=== PATIENT | male | born 1955 | race Asian ===

== ENCOUNTER → 2016-12-26 | Outpatient (CLI) | payer OTHER ==
[~2016-12-26] MED LIST: ALLO300T2 PO; COLC0.6T69 PO; METO100XL PO; SIMV20TA6 PO
[2016-12-26 11:23] LABS: BASOPHILS % (AUTO) 1.3 % (0.0-2.0); EOSINOPHILS % (AUTO) 6.8 % (1.0-6.0); HEMATOCRIT 45.4 % (41-53); HEMOGLOBIN 14.8 g/dL (13.5-17.5); LYMPHOCYTES # (AUTO) 2.7 K/uL (1.0-4.8); LYMPHOCYTES % (AUTO) 33.3 % (22.0-44.0); MEAN CORPUSCULAR HEMOGLOBIN 29.2 pg (26.0-34.0); MEAN CORPUSCULAR HGB CONC 32.7 G/dL (31.0-37.0); MEAN CORPUSCULAR VOLUME 89 fL (80-100); MONOCYTES # (AUTO) 0.6 K/uL (0.1-1.0); MONOCYTES % (AUTO) 7.6 % (2.0-9.0); NEUTROPHILS # (AUTO) 4.1 K/uL (1.8-7.7); PLATELET COUNT (AUTO) 273 K/uL (150-450); RED BLOOD CELL COUNT(AUTO) 5.09 MIL/uL (4.50-5.90); RED CELL DISTRIBUTION WIDTH 14.9 % (11.5-14.5)
[2016-12-26 11:38] LABS: ALANINE AMINOTRANSFERASE 49 U/L (12-78); ALBUMIN 3.8 g/dL (3.4-5.0); ANION GAP 10 mmol/L (8-16); ASPARTATE AMINOTRANSFERASE 27 U/L (15-37); BILIRUBIN,TOTAL 0.6 mg/dL (0.1-1.0); CALCIUM, TOTAL 8.7 mg/dL (8.8-10.5); CARBON DIOXIDE 27 mmol/L (22-29); CHLORIDE 104 mmol/L (98-107); CREATININE 1.14 mg/dL (0.60-1.30); GLOMERULAR FILTR. RATE CALC > 60 mL/min (>60); SODIUM SERUM 141 mmol/L (136-145); TOTAL PROTEIN, SERUM 7.6 g/dL (6.4-8.2); UREA NITROGEN, BLOOD 15 mg/dL (7-18)
[2016-12-26 12:06] LABS: URIC ACID 4.4 mg/dL (2.6-7.2)
[2016-12-26 12:25] LABS: HEMOGLOBIN A1C 5.8 % (4.5-6.2)
== END | disposition home or self-care (01) ==
LOC: LABPV 08:34
PROVIDERS: ATTEND Internal Medicine
DX: I10 Essential (primary) hypertension (principal); E78.2 Mixed hyperlipidemia; R73.09 Other abnormal glucose; M10.9 Gout, unspecified
CPT/HCPCS: 83036; 84550

== ENCOUNTER → 2017-09-08 | Outpatient (CLI) | payer OTHER ==
[~2017-09-08] MED LIST changes: +COLC0.6T68 PO; -COLC0.6T69 PO
[2017-09-08 08:34] LABS: BASOPHILS # (AUTO) 0.11 K/uL (0.00-0.20); BASOPHILS % (AUTO) 1.3 % (0.0-2.0); EOSINOPHILS # (AUTO) 0.12 K/uL (0.00-0.70); EOSINOPHILS % (AUTO) 1.52 % (1.0-6.0); HEMATOCRIT 43.2 % (41-53); HEMOGLOBIN 14.2 g/dL (13.5-17.5); LYMPHOCYTES # (AUTO) 2.9 K/uL (1.0-4.8); LYMPHOCYTES % (AUTO) 35.6 % (22.0-44.0); MEAN CORPUSCULAR HEMOGLOBIN 30.1 pg (26.0-34.0); MEAN CORPUSCULAR HGB CONC 32.8 G/dL (31.0-37.0); MEAN CORPUSCULAR VOLUME 92 fL (80-100); MONOCYTES # (AUTO) 0.6 K/uL (0.1-1.0); MONOCYTES % (AUTO) 7.8 % (2.0-9.0); NEUTROPHILS # (AUTO) 4.3 K/uL (1.8-7.7); NEUTROPHILS % (AUTO) 53.8 % (40.0-70.0); PLATELET COUNT (AUTO) 271 K/uL (150-450); RED BLOOD CELL COUNT(AUTO) 4.71 MIL/uL (4.50-5.90); RED CELL DISTRIBUTION WIDTH 14.7 % (11.5-14.5)
[2017-09-08 08:51] LABS: ALANINE AMINOTRANSFERASE 29 U/L (12-78); ALKALINE PHOSPHATASE 62 U/L (46-116); ANION GAP 6 mmol/L (8-16); ASPARTATE AMINOTRANSFERASE 17 U/L (15-37); BILIRUBIN,TOTAL 0.8 mg/dL (0.1-1.0); CALCIUM, TOTAL 8.6 mg/dL (8.8-10.5); CARBON DIOXIDE 28 mmol/L (22-29); CHLORIDE 104 mmol/L (98-107); CHOL/HDL RATIO 2.8 (4.2-7.3); CHOLESTEROL 148 mg/dL (131-200); CREATININE 1.09 mg/dL (0.60-1.30); GLOMERULAR FILTR. RATE CALC > 60 mL/min (>60); GLUCOSE,RANDOM 101 mg/dL (70-110); HDL CHOLESTEROL 53 mg/dL (40-60); LDL CHOL (CALC.) 75 mg/dL (0-130); SODIUM SERUM 138 mmol/L (136-145); THYROID STIMULATING HORMONE 2.55 uIU/mL (0.36-3.74); TOTAL PROTEIN, SERUM 7.5 g/dL (6.4-8.2); TRIGLYCERIDES 99 mg/dL (15-150); UREA NITROGEN, BLOOD 17 mg/dL (7-18)
[2017-09-08 08:59] LABS: HEMOGLOBIN A1C 6.2 % (4.5-6.2)
== END | disposition home or self-care (01) ==
LOC: MSR 07:30
PROVIDERS: ATTEND Internal Medicine
DX: M65.331 Trigger finger, right middle finger (principal); M65.332 Trigger finger, left middle finger; M65.341 Trigger finger, right ring finger; M65.342 Trigger finger, left ring finger; I10 Essential (primary) hypertension; R73.09 Other abnormal glucose; E78.2 Mixed hyperlipidemia
CPT/HCPCS: 83036; 84443

== ENCOUNTER → 2019-01-12 | Outpatient (CLI) | payer OTHER ==
[2019-01-12 09:28] LABS: BASOPHILS % (AUTO) 1.9 % (0.0-2.0); EOSINOPHILS % (AUTO) 6.3 % (1.0-6.0); HEMATOCRIT 41.3 % (41-53); HEMOGLOBIN 13.5 g/dL (13.5-17.5); LYMPHOCYTES # (AUTO) 3.3 K/uL (1.0-4.8); LYMPHOCYTES % (AUTO) 41.5 % (22.0-44.0); MEAN CORPUSCULAR HEMOGLOBIN 30.1 pg (26.0-34.0); MEAN CORPUSCULAR HGB CONC 32.8 G/dL (31.0-37.0); MEAN CORPUSCULAR VOLUME 92 fL (80-100); MONOCYTES # (AUTO) 0.7 K/uL (0.1-1.0); MONOCYTES % (AUTO) 9.2 % (2.0-9.0); NEUTROPHILS # (AUTO) 3.3 K/uL (1.8-7.7); NEUTROPHILS % (AUTO) 41.1 % (40.0-70.0); PLATELET COUNT (AUTO) 277 K/uL (150-450); RED CELL DISTRIBUTION WIDTH 14.7 % (11.5-14.5)
[2019-01-12 09:39] LABS: HEMOGLOBIN A1C 5.5 % (4.5-6.2)
[2019-01-12 09:58] LABS: ALANINE AMINOTRANSFERASE 50 U/L (12-78); ALBUMIN 3.5 g/dL (3.4-5.0); ALKALINE PHOSPHATASE 63 U/L (46-116); ANION GAP 8 mmol/L (8-16); ASPARTATE AMINOTRANSFERASE 35 U/L (15-37); BILIRUBIN,TOTAL 0.7 mg/dL (0.1-1.0); CALCIUM, TOTAL 8.6 mg/dL (8.8-10.5); CARBON DIOXIDE 26 mmol/L (22-29); CHLORIDE 103 mmol/L (98-107); CHOL/HDL RATIO 3.2 (4.2-7.3); CHOLESTEROL 123 mg/dL (131-200); CREATININE 1.14 mg/dL (0.60-1.30); GLOMERULAR FILTR. RATE CALC > 60 mL/min (>60); GLUCOSE,RANDOM 108 mg/dL (70-110); HDL CHOLESTEROL 39 mg/dL (40-60); LDL CHOL (CALC.) 57 mg/dL (0-130); POTASSIUM 4.3 mmol/L (3.5-5.1); SODIUM SERUM 137 mmol/L (136-145); THYROID STIMULATING HORMONE 1.95 uIU/mL (0.36-3.74); TOTAL PROTEIN, SERUM 7.5 g/dL (6.4-8.2); TRIGLYCERIDES 135 mg/dL (15-150); UREA NITROGEN, BLOOD 16 mg/dL (7-18)
[2019-01-12 10:08] LABS: URIC ACID 4.4 mg/dL (2.6-7.2)
== END | disposition home or self-care (01) ==
LOC: LABPV 07:04
PROVIDERS: ATTEND Internal Medicine
DX: E78.2 Mixed hyperlipidemia (principal); I10 Essential (primary) hypertension; M10.9 Gout, unspecified
CPT/HCPCS: 83036; 84443; 84550

== ENCOUNTER 2019-04-17 08:44 | Emergency (ER) | payer OTHER ==
[~2019-04-17] VITALS: Ht 167.6 cm; Wt 73.2 kg
[2019-04-17] MEDS ORDERED: ATOR10TA84 PO (08:58)
[2019-04-17] MEDS ORDERED: ASPI81 PO (08:58)
[2019-04-17] MEDS ORDERED: LOSA25TA41 PO (08:58)
[2019-04-17 09:00] VITALS: BP 158/98
[2019-04-17] MEDS ORDERED: NITROGLYCERIN 2% (1 GM=INCH) PACKET TP ONE (09:15)
[2019-04-17] MEDS ORDERED: ASPIRIN 81 MG CHEWABLE TABLET PO ONE (09:15)
[2019-04-17 09:27] LABS: BASOPHILS % (AUTO) 0.8 % (0.0-2.0); EOSINOPHILS % (AUTO) 5.3 % (1.0-6.0); HEMATOCRIT 43.6 % (41-53); HEMOGLOBIN 14.2 g/dL (13.5-17.5); LYMPHOCYTES # (AUTO) 2.5 K/uL (1.0-4.8); MEAN CORPUSCULAR HEMOGLOBIN 29.8 pg (26.0-34.0); MEAN CORPUSCULAR HGB CONC 32.6 G/dL (31.0-37.0); MEAN CORPUSCULAR VOLUME 92 fL (80-100); MONOCYTES # (AUTO) 0.7 K/uL (0.1-1.0); MONOCYTES % (AUTO) 8.6 % (2.0-9.0); NEUTROPHILS # (AUTO) 4.6 K/uL (1.8-7.7); NEUTROPHILS % (AUTO) 55.3 % (40.0-70.0); PLATELET COUNT (AUTO) 253 K/uL (150-450); RED BLOOD CELL COUNT(AUTO) 4.76 MIL/uL (4.50-5.90); RED CELL DISTRIBUTION WIDTH 14.6 % (11.5-14.5)
[2019-04-17 09:34] LABS: ANION GAP 8 mmol/L (8-16); CALCIUM, TOTAL 9.5 mg/dL (8.8-10.5); CARBON DIOXIDE 26 mmol/L (22-29); CHLORIDE 103 mmol/L (98-107); CREATININE 1.06 mg/dL (0.60-1.30); GLOMERULAR FILTR. RATE CALC > 60 mL/min (>60); GLUCOSE,RANDOM 111 mg/dL (70-110); SODIUM SERUM 137 mmol/L (136-145); UREA NITROGEN, BLOOD 16 mg/dL (7-18)
[2019-04-17 09:40] LABS: ALANINE AMINOTRANSFERASE 39 U/L (12-78); ALBUMIN 3.9 g/dL (3.4-5.0); ALKALINE PHOSPHATASE 67 U/L (46-116); ASPARTATE AMINOTRANSFERASE 26 U/L (15-37); BILIRUBIN,TOTAL 0.3 mg/dL (0.1-1.0)
[2019-04-17 09:44] LABS: B-TYPE NATRIURETIC PEPTIDE 10 pg/mL (0-100)
== END 2019-04-17 10:00 | disposition left against medical advice (07) ==
LOC: EMS 08:46
DX: R07.2 Precordial pain (principal); I10 Essential (primary) hypertension; E78.00 Pure hypercholesterolemia, unspecified; Z88.0 Allergy status to penicillin; Z88.1 Allergy status to other antibiotic agents; Z79.82 Long term (current) use of aspirin; Z79.899 Other long term (current) drug therapy; Z87.891 Personal history of nicotine dependence
CPT/HCPCS: 93005

== ENCOUNTER → 2019-11-08 | Outpatient (CLI) | payer OTHER ==
[~2019-11-08] MED LIST changes: +ASPI81 PO; +ATOR10TA84 PO; -COLC0.6T68 PO; +LOSA25TA41 PO; -METO100XL PO; -SIMV20TA6 PO
== END | disposition home or self-care (01) ==
LOC: RADPV 11:16
PROVIDERS: ATTEND Internal Medicine
DX: I70.0 Atherosclerosis of aorta (principal); R06.2 Wheezing

== ENCOUNTER 2019-12-29 03:19 | Inpatient (IN) | payer OTHER ==
[~2019-12-29] VITALS: Ht 165.1 cm; Wt 74.0 kg
[~2019-12-29 03:19] MED LIST changes: +ASPI-728 PO; -ASPI81 PO; -LOSA25TA41 PO; +LOSA25TA71 PO
[2019-12-29] MEDS ORDERED: SODIUM CHLORIDE 0.9% 1,000 ML IV ONE (03:45)
[2019-12-29] MEDS ORDERED: MAG HYDROX/AL HYDROX/SIMETH 30 ML SUSP UDCUP PO ONE (03:45)
[2019-12-29] MEDS ORDERED: ONDANSETRON HCL 4 MG/2 ML VIAL IVP ONE (03:45)
[2019-12-29] MEDS ORDERED: MORPHINE SULFATE 2 MG/ML SYRINGE IVP ONE (03:45)
[2019-12-29] MEDS ORDERED: FAMOTIDINE 10 MG/ML 2 ML VIAL IVP ONE (03:45)
[2019-12-29 04:12] LABS: BASOPHILS % (AUTO) 0.7 % (0.0-2.0); EOSINOPHILS % (AUTO) 1.2 % (1.0-6.0); HEMATOCRIT 40.6 % (41-53); HEMOGLOBIN 13.3 g/dL (13.5-17.5); LYMPHOCYTES % (AUTO) 18.7 % (22.0-44.0); MEAN CORPUSCULAR HEMOGLOBIN 29.9 pg (26.0-34.0); MEAN CORPUSCULAR HGB CONC 32.8 G/dL (31.0-37.0); MEAN CORPUSCULAR VOLUME 91 fL (80-100); MONOCYTES # (AUTO) 1.1 K/uL (0.1-1.0); NEUTROPHILS # (AUTO) 11.7 K/uL (1.8-7.7); NEUTROPHILS % (AUTO) 72.4 % (40.0-70.0); PLATELET COUNT (AUTO) 271 K/uL (150-450); RED BLOOD CELL COUNT(AUTO) 4.45 MIL/uL (4.50-5.90); RED CELL DISTRIBUTION WIDTH 15.8 % (11.5-14.5)
[2019-12-29 04:21] LABS: ANION GAP 13 mmol/L (8-16); CALCIUM, TOTAL 8.8 mg/dL (8.8-10.5); CARBON DIOXIDE 24 mmol/L (22-29); CHLORIDE 100 mmol/L (98-107); CREATININE 0.91 mg/dL (0.60-1.30); GLOMERULAR FILTR. RATE CALC > 60 mL/min (>60); GLUCOSE,RANDOM 197 mg/dL (70-110); POTASSIUM 3.6 mmol/L (3.5-5.1); SODIUM SERUM 137 mmol/L (136-145); UREA NITROGEN, BLOOD 18 mg/dL (7-18)
[2019-12-29 04:27] LABS: ALANINE AMINOTRANSFERASE 174 U/L (12-78); ALBUMIN 3.7 g/dL (3.4-5.0); ALKALINE PHOSPHATASE 87 U/L (46-116); ASPARTATE AMINOTRANSFERASE 234 U/L (15-37); BILIRUBIN,TOTAL 1.1 mg/dL (0.1-1.0); LIPASE 241 U/L (73-393); TOTAL PROTEIN, SERUM 7.8 g/dL (6.4-8.2)
[2019-12-29 04:49] LABS: APPEARANCE,URINE CLEAR (CLEAR); BILIRUBIN,URINE NEGATIVE (NEGATIVE); GLUCOSE, URINE (UA) 100 mg/dL (NEGATIVE); KETONES,URINE NEGATIVE (NEGATIVE); LEUKOCYTE ESTERASE ,URINE NEGATIVE (NEGATIVE); NITRATE,URINE NEGATIVE (NEGATIVE); OCCULT BLOOD,URINE NEGATIVE (NEGATIVE); PROTEIN,URINE TRACE (NEGATIVE)
[2019-12-29 04:55] LABS: BACTERIA,URINE None Seen /HPF (None Seen); RBC,URINE 0-2 /HPF (0-2); SQUAMOUS EPITHELIAL CELL,UR None Seen /LPF (None Seen); WBC,URINE 0-2 /HPF (0-5)
[2019-12-29] MEDS ORDERED: IOVERSOL 350 MG/ML 100 ML VIAL ONE (04:55)
[2019-12-29] MEDS ORDERED: SODIUM CHLORIDE 0.9% 100 ML ONE (04:55)
[2019-12-29] MEDS ORDERED: LEVOFLOXACIN 750 MG/D5% WATER 150 ML IV ONE (05:00)
[2019-12-29] MEDS ORDERED: 0.9% SODIUM CHLORIDE 10 ML SYRINGE IVP PRN (05:45)
[2019-12-29] MEDS ORDERED: ONDANSETRON HCL 4 MG/2 ML VIAL IVP PRN (05:45)
[2019-12-29] MEDS ORDERED: ACETAMINOPHEN 325 MG TABLET PO PRN (05:45)
[2019-12-29 06:45] VITALS: BP 152/96
[2019-12-29 07:32] VITALS: BP 157/94
[2019-12-29] MEDS ORDERED: BUPIVACAINE 0.25%/EPI 1:200,000/PF 10 ML VIAL ONE (07:58)
[2019-12-29] MEDS ORDERED: IOHEXOL 240 MG/ML 20 ML VIAL ONE (07:59)
[2019-12-29] MEDS ORDERED: RINGERS SOLUTION,LACTATED 1,000 ML IV ONE ×2 (08:01→08:30)
[2019-12-29] MEDS ORDERED: ACETAMINOPHEN 1000 MG/ISO-OSM 100 ML IV ONE (08:37)
[2019-12-29] MEDS ORDERED: HYDROmorphone 2 MG/ML SYRINGE IVP PRN ×2 (08:45→14:00)
[2019-12-29] MEDS ORDERED: FentaNYL CITRATE-PF 100 MCG/2 ML VIAL IVP PRN (08:45)
[2019-12-29] MEDS ORDERED: GLUCAGON,HUMAN RECOMBINANT 1 MG VIAL ONE (09:34)
[2019-12-29] MEDS ORDERED: KETOROLAC TROMETHAMINE 30 MG/ML VIAL ONE (10:09)
[2019-12-29] MEDS ORDERED: KETOROLAC TROMETHAMINE 30 MG/ML VIAL IVP STA (10:10)
[2019-12-29 11:35] VITALS: BP 131/78
[2019-12-29] MEDS ORDERED: ROCURONIUM BROMIDE 10 MG/ML 5 ML VIAL IVP ONE (12:00)
[2019-12-29] MEDS ORDERED: PROPOFOL 1% 20 ML VIAL IVP ONE (12:00)
[2019-12-29] MEDS ORDERED: LIDOCAINE 1% 10 ML VIAL INJ ONE (12:00)
[2019-12-29] MEDS ORDERED: GLUCAGON,HUMAN RECOMBINANT 1 MG VIAL IVP ONE (12:00)
[2019-12-29] MEDS ORDERED: GLYCOPYRROLATE 0.2 MG/ML VIAL IM ONE (12:00)
[2019-12-29] MEDS ORDERED: FentaNYL CITRATE-PF 100 MCG/2 ML VIAL IVP ONE (12:00)
[2019-12-29] MEDS ORDERED: MIDAZOLAM HCL 2 MG/2 ML VIAL IVP ONE (12:00)
[2019-12-29] MEDS ORDERED: NEOSTIGMINE METHYLSULFATE 1 MG/ML 10 ML VIAL IVP ONE (12:00)
[2019-12-29] MEDS ORDERED: ESMOLOL HCL 10 MG/ML 10 ML VIAL IVP ONE (12:00)
[2019-12-29 15:43] VITALS: BP 141/82
[2019-12-29] MEDS ORDERED: SODIUM CHLORIDE 0.9% 500 ML IV ONE (15:52)
[2019-12-29] MEDS: ACETAMINOPHEN 1000 MG/ISO-OSM 100 ML IV SCH (16:51)
[2019-12-29 20:07] VITALS: BP 139/88
[2019-12-29 23:46] VITALS: BP 144/90
[2019-12-30] MEDS: ACETAMINOPHEN 1000 MG/ISO-OSM 100 ML IV SCH (01:00)
[2019-12-30 05:03] VITALS: BP 143/86
[2019-12-30 07:56] VITALS: BP 136/89
[2019-12-30] MEDS: OXYGEN THERAPY IH SCH ×2 (08:00→20:00)
[2019-12-30] MEDS ORDERED: OxyCODONE HCL/ACETAMINOPHEN 5-325 MG TABLET PO PRN (08:00)
[2019-12-30 09:14] LABS: BASOPHILS % (AUTO) 0.5 % (0.0-2.0); EOSINOPHILS % (AUTO) 1.5 % (1.0-6.0); HEMATOCRIT 39.9 % (41-53); LYMPHOCYTES # (AUTO) 1.1 K/uL (1.0-4.8); LYMPHOCYTES % (AUTO) 10.5 % (22.0-44.0); MEAN CORPUSCULAR HGB CONC 32.6 G/dL (31.0-37.0); MEAN CORPUSCULAR VOLUME 92 fL (80-100); MONOCYTES # (AUTO) 0.7 K/uL (0.1-1.0); MONOCYTES % (AUTO) 6.3 % (2.0-9.0); NEUTROPHILS # (AUTO) 8.4 K/uL (1.8-7.7); NEUTROPHILS % (AUTO) 81.2 % (40.0-70.0); PLATELET COUNT (AUTO) 246 K/uL (150-450); RED BLOOD CELL COUNT(AUTO) 4.34 MIL/uL (4.50-5.90); RED CELL DISTRIBUTION WIDTH 16.1 % (11.5-14.5)
[2019-12-30 09:26] LABS: ALANINE AMINOTRANSFERASE 305 U/L (12-78); ALBUMIN 3.2 g/dL (3.4-5.0); ALKALINE PHOSPHATASE 127 U/L (46-116); ANION GAP 9 mmol/L (8-16); ASPARTATE AMINOTRANSFERASE 144 U/L (15-37); BILIRUBIN,TOTAL 5.8 mg/dL (0.1-1.0); CALCIUM, TOTAL 8.4 mg/dL (8.8-10.5); CARBON DIOXIDE 26 mmol/L (22-29); CHLORIDE 101 mmol/L (98-107); CREATININE 1.01 mg/dL (0.60-1.30); GLOMERULAR FILTR. RATE CALC > 60 mL/min (>60); GLUCOSE,RANDOM 135 mg/dL (70-110); POTASSIUM 3.6 mmol/L (3.5-5.1); SODIUM SERUM 136 mmol/L (136-145); TOTAL PROTEIN, SERUM 7.3 g/dL (6.4-8.2); UREA NITROGEN, BLOOD 11 mg/dL (7-18)
[2019-12-30 11:34] VITALS: BP 125/71
[2019-12-30 11:45] VITALS: BP 151/92
[2019-12-30] MEDS: POTASSIUM CHL 20 MEQ/0.9% NS 1,000 ML IV SCH (12:19)
[2019-12-30] MEDS: MetroNIDAZOLE 500 MG/NACL 100 ML IV SCH ×2 (12:20→20:01)
[2019-12-30] MEDS: LOSARTAN POTASSIUM 25 MG TABLET PO SCH (13:56)
[2019-12-30] MEDS: LEVOFLOXACIN 500 MG/D5% WATER 100 ML IV SCH (13:56)
[2019-12-30 15:45] VITALS: BP 141/83
[2019-12-30 19:47] VITALS: BP 109/71
[2019-12-31] VITALS (7 sets, daily range): BP systolic 125–151; BP diastolic 76–100
[2019-12-31] MEDS: POTASSIUM CHL 20 MEQ/0.9% NS 1,000 ML IV SCH ×2 (01:39→14:16)
[2019-12-31] MEDS: MetroNIDAZOLE 500 MG/NACL 100 ML IV SCH ×3 (04:01→20:26)
[2019-12-31 07:15] LABS: ALANINE AMINOTRANSFERASE 203 U/L (12-78); ALBUMIN 2.8 g/dL (3.4-5.0); ALKALINE PHOSPHATASE 123 U/L (46-116); ANION GAP 9 mmol/L (8-16); ASPARTATE AMINOTRANSFERASE 64 U/L (15-37); CALCIUM, TOTAL 8.3 mg/dL (8.8-10.5); CARBON DIOXIDE 24 mmol/L (22-29); CHLORIDE 105 mmol/L (98-107); GLOMERULAR FILTR. RATE CALC > 60 mL/min (>60); GLUCOSE,RANDOM 108 mg/dL (70-110); POTASSIUM 3.8 mmol/L (3.5-5.1); SODIUM SERUM 138 mmol/L (136-145); TOTAL PROTEIN, SERUM 6.7 g/dL (6.4-8.2); UREA NITROGEN, BLOOD 8 mg/dL (7-18)
[2019-12-31] MEDS: OXYGEN THERAPY IH SCH ×2 (08:00→20:00)
[2019-12-31] MEDS ORDERED: SODIUM CHLORIDE 0.9% 100 ML ONE (09:32)
[2019-12-31] MEDS ORDERED: IOVERSOL 350 MG/ML 100 ML VIAL ONE (09:32)
[2019-12-31] MEDS ORDERED: IOTHALAMATE MEGLUMINE 600 MG/ML 50 ML VIAL IVP ONE (10:33)
[2019-12-31] MEDS ORDERED: SODIUM CHLORIDE 0.9% 1,000 ML IV ONE (11:00)
[2019-12-31] MEDS ORDERED: GLUCAGON,HUMAN RECOMBINANT 1 MG VIAL IVP ONE (12:00)
[2019-12-31] MEDS ORDERED: FentaNYL CITRATE-PF 100 MCG/2 ML VIAL IVP ONE (12:00)
[2019-12-31] MEDS ORDERED: MIDAZOLAM HCL 2 MG/2 ML VIAL IVP ONE (12:00)
[2019-12-31] MEDS ORDERED: PROPOFOL 1% 20 ML VIAL IVP ONE (12:00)
[2019-12-31] MEDS ORDERED: SUCCINYLCHOLINE CHLORIDE 20 MG/ML 10 ML VIAL IVP ONE (12:00)
[2019-12-31] MEDS ORDERED: ONDANSETRON HCL 4 MG/2 ML VIAL IVP ONE (12:00)
[2019-12-31] MEDS ORDERED: LIDOCAINE 1% 10 ML VIAL INJ ONE (12:00)
[2019-12-31] MEDS ORDERED: 0.9% SODIUM CHLORIDE 10 ML SYRINGE IVP PRN (12:45)
[2019-12-31] MEDS ORDERED: FentaNYL CITRATE-PF 100 MCG/2 ML VIAL IVP PRN (12:45)
[2019-12-31] MEDS ORDERED: ONDANSETRON HCL 4 MG/2 ML VIAL IVP PRN (12:45)
[2019-12-31] MEDS ORDERED: ACETAMINOPHEN 325 MG TABLET PO PRN (12:45)
[2019-12-31] MEDS ORDERED: HYDROmorphone 2 MG/ML SYRINGE IVP PRN (12:45)
[2019-12-31] MEDS ORDERED: RINGERS SOLUTION,LACTATED 1,000 ML IV ONE (12:45)
[2019-12-31] MEDS: LOSARTAN POTASSIUM 25 MG TABLET PO SCH (14:16)
[2019-12-31] MEDS: LEVOFLOXACIN 500 MG/D5% WATER 100 ML IV SCH (15:44)
[2020-01-01 03:55] VITALS: BP 134/81
[2020-01-01] MEDS: MetroNIDAZOLE 500 MG/NACL 100 ML IV SCH ×3 (03:55→19:59)
[2020-01-01] MEDS: POTASSIUM CHL 20 MEQ/0.9% NS 1,000 ML IV SCH (03:55)
[2020-01-01 06:45] LABS: BASOPHILS % (AUTO) 0.1 % (0.0-2.0); EOSINOPHILS % (AUTO) 0 % (1.0-6.0); HEMATOCRIT 39.1 % (41-53); HEMOGLOBIN 12.9 g/dL (13.5-17.5); LYMPHOCYTES # (AUTO) 1.3 K/uL (1.0-4.8); LYMPHOCYTES % (AUTO) 11.7 % (22.0-44.0); MEAN CORPUSCULAR HGB CONC 32.8 G/dL (31.0-37.0); MEAN CORPUSCULAR VOLUME 91 fL (80-100); MONOCYTES % (AUTO) 9.4 % (2.0-9.0); NEUTROPHILS # (AUTO) 8.7 K/uL (1.8-7.7); NEUTROPHILS % (AUTO) 78.8 % (40.0-70.0); PLATELET COUNT (AUTO) 284 K/uL (150-450); RED BLOOD CELL COUNT(AUTO) 4.29 MIL/uL (4.50-5.90)
[2020-01-01 06:55] LABS: ALANINE AMINOTRANSFERASE 147 U/L (12-78); ALBUMIN 2.9 g/dL (3.4-5.0); ALKALINE PHOSPHATASE 128 U/L (46-116); ANION GAP 7 mmol/L (8-16); ASPARTATE AMINOTRANSFERASE 32 U/L (15-37); BILIRUBIN,TOTAL 1.1 mg/dL (0.1-1.0); CALCIUM, TOTAL 8.3 mg/dL (8.8-10.5); CARBON DIOXIDE 24 mmol/L (22-29); CHLORIDE 105 mmol/L (98-107); CREATININE 0.93 mg/dL (0.60-1.30); GLOMERULAR FILTR. RATE CALC > 60 mL/min (>60); GLUCOSE,RANDOM 130 mg/dL (70-110); SODIUM SERUM 136 mmol/L (136-145); UREA NITROGEN, BLOOD 11 mg/dL (7-18)
[2020-01-01 07:33] VITALS: BP 154/86
[2020-01-01] MEDS: OXYGEN THERAPY IH SCH ×2 (08:00→20:00)
[2020-01-01] MEDS: LOSARTAN POTASSIUM 25 MG TABLET PO SCH (08:03)
[2020-01-01] MEDS ORDERED: PNEUMOCOCCAL VACCINE POLYVALENT 0.5 ML VIAL [PPSV23] IM ONE (11:15)
[2020-01-01] MEDS ORDERED: INFLUENZA VIRUS VACCINE QVS 2019-20 (3YR+)/PF 60 MCG/0.5 ML SYRINGE IM ONE (11:15)
[2020-01-01 11:37] VITALS: BP 144/86
[2020-01-01] MEDS: LEVOFLOXACIN 500 MG/D5% WATER 100 ML IV SCH (13:51)
[2020-01-01 15:31] VITALS: BP 149/91
[2020-01-01 20:06] VITALS: BP 149/91
[2020-01-01 23:47] VITALS: BP 147/87
[2020-01-02] MEDS: MetroNIDAZOLE 500 MG/NACL 100 ML IV SCH ×2 (03:59→11:55)
[2020-01-02 04:00] VITALS: BP 163/84
[2020-01-02 07:25] LABS: BASOPHILS % (AUTO) 0.8 % (0.0-2.0); EOSINOPHILS % (AUTO) 1.9 % (1.0-6.0); HEMOGLOBIN 12.6 g/dL (13.5-17.5); LYMPHOCYTES # (AUTO) 1.9 K/uL (1.0-4.8); LYMPHOCYTES % (AUTO) 20.6 % (22.0-44.0); MEAN CORPUSCULAR HGB CONC 33.2 G/dL (31.0-37.0); MEAN CORPUSCULAR VOLUME 91 fL (80-100); MONOCYTES # (AUTO) 1.2 K/uL (0.1-1.0); MONOCYTES % (AUTO) 12.9 % (2.0-9.0); NEUTROPHILS # (AUTO) 5.9 K/uL (1.8-7.7); NEUTROPHILS % (AUTO) 63.8 % (40.0-70.0); PLATELET COUNT (AUTO) 280 K/uL (150-450); RED BLOOD CELL COUNT(AUTO) 4.19 MIL/uL (4.50-5.90); RED CELL DISTRIBUTION WIDTH 15.9 % (11.5-14.5)
[2020-01-02 07:43] LABS: ALANINE AMINOTRANSFERASE 113 U/L (12-78); ALBUMIN 2.9 g/dL (3.4-5.0); ALKALINE PHOSPHATASE 108 U/L (46-116); ANION GAP 9 mmol/L (8-16); ASPARTATE AMINOTRANSFERASE 32 U/L (15-37); BILIRUBIN,TOTAL 0.9 mg/dL (0.1-1.0); CALCIUM, TOTAL 8.2 mg/dL (8.8-10.5); CARBON DIOXIDE 24 mmol/L (22-29); CHLORIDE 101 mmol/L (98-107); CREATININE 1.02 mg/dL (0.60-1.30); GLOMERULAR FILTR. RATE CALC > 60 mL/min (>60); GLUCOSE,RANDOM 105 mg/dL (70-110); POTASSIUM 3.7 mmol/L (3.5-5.1); SODIUM SERUM 134 mmol/L (136-145); TOTAL PROTEIN, SERUM 6.6 g/dL (6.4-8.2); UREA NITROGEN, BLOOD 14 mg/dL (7-18)
[2020-01-02] MEDS: LOSARTAN POTASSIUM 25 MG TABLET PO SCH (08:32)
[2020-01-02 08:59] VITALS: BP 154/83
[2020-01-02 12:09] VITALS: BP 146/90
[2020-01-02] MEDS ORDERED: HYDR-4455 PO (13:04)
[2020-01-02] MEDS ORDERED: DOCU-275 PO (13:06)
== END 2020-01-02 13:14 | disposition home or self-care (01) | DRG 419 ==
LOC: EMS 03:19 → 4E 05:37
PROVIDERS: ADMIT Internal Medicine; ATTEND Internal Medicine
PROC: BF131ZZ Fluoroscopy of Gallbladder and Bile Ducts using Low Osmolar Contrast (ICD-10-PCS; 2019-12-29)
PROC: 0FT44ZZ Resection of Gallbladder, Percutaneous Endoscopic Approach (ICD-10-PCS; principal; 2019-12-29 09:00)
DX: K80.43 Calculus of bile duct with acute cholecystitis with obstruction (principal); E78.5 Hyperlipidemia, unspecified; I10 Essential (primary) hypertension; M10.9 Gout, unspecified; E80.6 Other disorders of bilirubin metabolism; E78.00 Pure hypercholesterolemia, unspecified; Z88.0 Allergy status to penicillin; Z88.8 Allergy status to other drugs, medicaments and biological substances; Z87.891 Personal history of nicotine dependence; Z72.89 Other problems related to lifestyle; Z28.21 Immunization not carried out because of patient refusal
CPT/HCPCS: 74177; 74178; 76705; 84154; 86850; 86900; 86901; 87081; 88304; 93005; G0378; J0131; J0330; J1610; J1885; J1956; J2250; J2270; J2405; J2704; J3010; J3480; J3490; J7030; J7040; J7050; J7120; Q9961; Q9966

== ENCOUNTER → 2020-10-23 | Outpatient (CLI) | payer OTHER ==
[~2020-10-23] MED LIST changes: +DOCU-275 PO; +HYDR-4455 PO; +LOSA25TA21 PO; -LOSA25TA71 PO
[2020-10-23 12:55] LABS: BASOPHILS % (AUTO) 2.2 % (0.0-2.0); HEMOGLOBIN 14.1 g/dL (13.5-17.5); LYMPHOCYTES # (AUTO) 2.2 K/uL (1.0-4.8); LYMPHOCYTES % (AUTO) 31.7 % (22.0-44.0); MEAN CORPUSCULAR HEMOGLOBIN 29.7 pg (26.0-34.0); MEAN CORPUSCULAR HGB CONC 32.8 G/dL (31.0-37.0); MEAN CORPUSCULAR VOLUME 91 fL (80-100); MONOCYTES # (AUTO) 0.7 K/uL (0.1-1.0); MONOCYTES % (AUTO) 9.7 % (2.0-9.0); NEUTROPHILS # (AUTO) 3.6 K/uL (1.8-7.7); NEUTROPHILS % (AUTO) 51.4 % (40.0-70.0); PLATELET COUNT (AUTO) 263 K/uL (150-450); RED BLOOD CELL COUNT(AUTO) 4.74 MIL/uL (4.50-5.90); RED CELL DISTRIBUTION WIDTH 14.9 % (11.5-14.5)
[2020-10-23 13:14] LABS: ALANINE AMINOTRANSFERASE 34 U/L (12-78); ALBUMIN 3.9 g/dL (3.4-5.0); ALKALINE PHOSPHATASE 72 U/L (46-116); ANION GAP 11 mmol/L (8-16); ASPARTATE AMINOTRANSFERASE 26 U/L (15-37); BILIRUBIN,TOTAL 0.7 mg/dL (0.1-1.0); CALCIUM, TOTAL 9.1 mg/dL (8.8-10.5); CARBON DIOXIDE 26 mmol/L (22-29); CHLORIDE 102 mmol/L (98-107); GLOMERULAR FILTR. RATE CALC > 60 mL/min (>60); GLUCOSE,RANDOM 112 mg/dL (70-110); POTASSIUM 4.4 mmol/L (3.5-5.1); SODIUM SERUM 139 mmol/L (136-145); THYROID STIMULATING HORMONE 2.64 uIU/mL (0.36-3.74); TOTAL PROTEIN, SERUM 8.2 g/dL (6.4-8.2); UREA NITROGEN, BLOOD 17 mg/dL (7-18)
== END | disposition home or self-care (01) ==
LOC: LABPV 07:04
PROVIDERS: ATTEND Internal Medicine
DX: I10 Essential (primary) hypertension (principal); R73.03 Prediabetes; E78.5 Hyperlipidemia, unspecified
CPT/HCPCS: 83036; 84443

== ENCOUNTER → 2021-04-26 | Outpatient (CLI) | payer OTHER ==
[~2021-04-26] MED LIST changes: +ASPI-1450 PO; -ASPI-728 PO
[2021-04-26 08:40] LABS: BASOPHILS % (AUTO) 2.6 % (0.0-2.0); HEMATOCRIT 42.6 % (41-53); HEMOGLOBIN 13.9 g/dL (13.5-17.5); LYMPHOCYTES # (AUTO) 2.7 K/uL (1.0-4.8); LYMPHOCYTES % (AUTO) 39.8 % (22.0-44.0); MEAN CORPUSCULAR HEMOGLOBIN 29.6 pg (26.0-34.0); MEAN CORPUSCULAR HGB CONC 32.5 G/dL (31.0-37.0); MEAN CORPUSCULAR VOLUME 91 fL (80-100); MONOCYTES # (AUTO) 0.6 K/uL (0.1-1.0); MONOCYTES % (AUTO) 8.1 % (2.0-9.0); NEUTROPHILS % (AUTO) 43.5 % (40.0-70.0); PLATELET COUNT (AUTO) 213 K/uL (150-450); RED BLOOD CELL COUNT(AUTO) 4.68 MIL/uL (4.50-5.90); RED CELL DISTRIBUTION WIDTH 14.8 % (11.5-14.5)
[2021-04-26 08:52] LABS: HEMOGLOBIN A1C 6.1 % (3.8-5.6)
[2021-04-26 09:06] LABS: CHOL/HDL RATIO 3.2 (4.2-7.3); THYROID STIMULATING HORMONE 1.84 uIU/mL (0.36-3.74)
== END | disposition home or self-care (01) ==
LOC: LABMN 08:12
PROVIDERS: ATTEND Internal Medicine
DX: I10 Essential (primary) hypertension (principal); R73.03 Prediabetes
CPT/HCPCS: 80061; 83036; 84443; 85025

== ENCOUNTER 2021-04-30 07:14 | Day surgery (SDC) | payer OTHER ==
[2021-04-26 08:53] LABS: COVID AG,FIA SOURCE NASOPHARYNGEAL
[~2021-04-30] VITALS: Ht 165.1 cm; Wt 72.7 kg
[2021-04-30] MEDS ORDERED: PROPOFOL 1% 20 ML VIAL IVP ONE (07:15)
[2021-04-30] MEDS ORDERED: LIDOCAINE/PF 2% 5 ML VIAL IM ONE (07:15)
[2021-04-30] MEDS ORDERED: SODIUM CHLORIDE 0.9% 1,000 ML ONE (07:34)
[2021-04-30] MEDS ORDERED: SODIUM CHLORIDE 0.9% 1,000 ML IV ONE (08:00)
== END 2021-04-30 11:00 | disposition home or self-care (01) ==
LOC: SURGERY 07:14
PROVIDERS: ATTEND Student in an Organized Health Care Education/Training Program
DX: Z12.11 Encounter for screening for malignant neoplasm of colon (principal); K57.30 Diverticulosis of large intestine without perforation or abscess without bleeding; K64.8 Other hemorrhoids; K64.4 Residual hemorrhoidal skin tags; I10 Essential (primary) hypertension; Z87.891 Personal history of nicotine dependence; M19.90 Unspecified osteoarthritis, unspecified site; M10.9 Gout, unspecified; E78.00 Pure hypercholesterolemia, unspecified; Z79.82 Long term (current) use of aspirin; Z90.49 Acquired absence of other specified parts of digestive tract; Z79.899 Other long term (current) drug therapy; Z88.0 Allergy status to penicillin
CPT/HCPCS: 45378; 87426; C9803; J2704; J3490; J7030

== ENCOUNTER 2021-05-02 20:06 | Emergency (ER) | payer OTHER ==
[~2021-05-02] VITALS: Ht 165.1 cm; Wt 73.6 kg
[2021-05-02] MEDS ORDERED: DiphenhydrAMINE HCL 25 MG CAPSULE PO ONE (20:45)
[2021-05-02] MEDS ORDERED: PredniSONE 20 MG TABLET PO ONE (20:45)
[2021-05-02 21:03] VITALS: BP 148/87
== END 2021-05-02 21:37 | disposition home or self-care (01) ==
LOC: EMS 20:06
DX: T78.40XA Allergy, unspecified, initial encounter (principal); I10 Essential (primary) hypertension; E78.00 Pure hypercholesterolemia, unspecified; Z88.0 Allergy status to penicillin; Z88.1 Allergy status to other antibiotic agents; Z79.82 Long term (current) use of aspirin; Z79.899 Other long term (current) drug therapy; X58.XXXA Exposure to other specified factors, initial encounter
CPT/HCPCS: 99283; J7512

== ENCOUNTER → 2022-03-01 | Outpatient (CLI) | payer OTHER ==
[~2022-03-01] MED LIST changes: -DOCU-275 PO; +DOCU-385 PO; +LOSA-381 PO; -LOSA25TA21 PO
[2022-03-01 10:51] LABS: BASOPHILS % (AUTO) 2.4 % (0.0-2.0); EOSINOPHILS % (AUTO) 4.8 % (1.0-6.0); HEMATOCRIT 42.3 % (41-53); HEMOGLOBIN 14.1 g/dL (13.5-17.5); LYMPHOCYTES # (AUTO) 2.1 K/uL (1.0-4.8); LYMPHOCYTES % (AUTO) 31.7 % (22.0-44.0); MEAN CORPUSCULAR HGB CONC 33.3 G/dL (31.0-37.0); MEAN CORPUSCULAR VOLUME 90 fL (80-100); MONOCYTES # (AUTO) 0.5 K/uL (0.1-1.0); NEUTROPHILS # (AUTO) 3.5 K/uL (1.8-7.7); NEUTROPHILS % (AUTO) 53.1 % (40.0-70.0); PLATELET COUNT (AUTO) 244 K/uL (150-450); RED BLOOD CELL COUNT(AUTO) 4.71 MIL/uL (4.50-5.90)
[2022-03-01 11:13] LABS: ALANINE AMINOTRANSFERASE 23 U/L (12-78); ALBUMIN 3.9 g/dL (3.4-5.0); ALKALINE PHOSPHATASE 57 U/L (46-116); ANION GAP 0 mmol/L (8-16); ASPARTATE AMINOTRANSFERASE 18 U/L (15-37); BILIRUBIN,TOTAL 0.4 mg/dL (0.1-1.0); CALCIUM, TOTAL 8.8 mg/dL (8.8-10.5); CARBON DIOXIDE 26 mmol/L (22-29); CHLORIDE 104 mmol/L (98-107); CHOL/HDL RATIO 2.8 (4.2-7.3); CHOLESTEROL 128 mg/dL (131-200); CREATININE 1.02 mg/dL (0.60-1.30); GLOMERULAR FILTR. RATE CALC > 60 mL/min (>60); GLUCOSE,RANDOM 110 mg/dL (70-110); HDL CHOLESTEROL 46 mg/dL (40-60); HEMOGLOBIN A1C 5.9 % (3.8-5.6); LDL CHOL (CALC.) 68 mg/dL (0-130); POTASSIUM 3.9 mmol/L (3.5-5.1); SODIUM SERUM 130 mmol/L (136-145); THYROID STIMULATING HORMONE 1.67 uIU/mL (0.36-3.74); TOTAL PROTEIN, SERUM 7.9 g/dL (6.4-8.2); TRIGLYCERIDES 69 mg/dL (15-150); UREA NITROGEN, BLOOD 16 mg/dL (7-18)
[2022-03-01 11:45] LABS: PROSTATE SPECIFIC ANTIGEN 4.01 ng/mL (0.00-4.00)
== END | disposition home or self-care (01) ==
LOC: LABPV 09:01
PROVIDERS: ATTEND Internal Medicine
DX: I10 Essential (primary) hypertension (principal); E78.2 Mixed hyperlipidemia; R73.09 Other abnormal glucose; N40.0 Benign prostatic hyperplasia without lower urinary tract symptoms
CPT/HCPCS: 80053; 80061; 83036; 84153; 84443; 85025

== ENCOUNTER → 2022-03-29 | Outpatient (CLI) | payer OTHER ==
[2022-03-29 08:25] LABS: BASOPHILS % (AUTO) 1.4 % (0.0-2.0); EOSINOPHILS % (AUTO) 3.4 % (1.0-6.0); HEMATOCRIT 41.5 % (41-53); HEMOGLOBIN 13.8 g/dL (13.5-17.5); LYMPHOCYTES # (AUTO) 2.2 K/uL (1.0-4.8); MEAN CORPUSCULAR HEMOGLOBIN 29.8 pg (26.0-34.0); MEAN CORPUSCULAR HGB CONC 33.3 G/dL (31.0-37.0); MEAN CORPUSCULAR VOLUME 90 fL (80-100); MONOCYTES # (AUTO) 0.7 K/uL (0.1-1.0); MONOCYTES % (AUTO) 7.2 % (2.0-9.0); NEUTROPHILS # (AUTO) 6.3 K/uL (1.8-7.7); PLATELET COUNT (AUTO) 284 K/uL (150-450); RED BLOOD CELL COUNT(AUTO) 4.63 MIL/uL (4.50-5.90)
[2022-03-29 08:47] LABS: ALANINE AMINOTRANSFERASE 22 U/L (12-78); ALBUMIN 3.6 g/dL (3.4-5.0); ALKALINE PHOSPHATASE 64 U/L (46-116); ANION GAP 6 mmol/L (8-16); ASPARTATE AMINOTRANSFERASE 19 U/L (15-37); BILIRUBIN,TOTAL 0.5 mg/dL (0.1-1.0); CALCIUM, TOTAL 8.5 mg/dL (8.8-10.5); CARBON DIOXIDE 26 mmol/L (22-29); CHLORIDE 102 mmol/L (98-107); CHOL/HDL RATIO 2.9 (4.2-7.3); CHOLESTEROL 129 mg/dL (131-200); CREATININE 1.11 mg/dL (0.60-1.30); GLOMERULAR FILTR. RATE CALC > 60 mL/min (>60); GLUCOSE,RANDOM 116 mg/dL (70-110); HDL CHOLESTEROL 44 mg/dL (40-60); LDL CHOL (CALC.) 68 mg/dL (0-130); POTASSIUM 4.3 mmol/L (3.5-5.1); SODIUM SERUM 134 mmol/L (136-145); TOTAL PROTEIN, SERUM 7.7 g/dL (6.4-8.2); TRIGLYCERIDES 87 mg/dL (15-150); UREA NITROGEN, BLOOD 15 mg/dL (7-18)
== END | disposition home or self-care (01) ==
LOC: LABPV 07:51
PROVIDERS: ATTEND Internal Medicine
DX: I10 Essential (primary) hypertension (principal); E11.65 Type 2 diabetes mellitus with hyperglycemia; E78.2 Mixed hyperlipidemia; R32 Unspecified urinary incontinence; N39.0 Urinary tract infection, site not specified; N40.0 Benign prostatic hyperplasia without lower urinary tract symptoms
CPT/HCPCS: 80053; 80061; 83036; 84153; 84443; 85025